=== PATIENT | male | born 1985 | race Caucasian/White ===

== ENCOUNTER 2017-03-26 19:34 | Observation (INO) | payer SELFPAY ==
[2017-03-26 19:35] VITALS: BP 138/83; PULSE 68; RESP 16; TEMP 97.7; O2SAT 100
[2017-03-26 19:47] VITALS: BP 139/87; PULSE 64; RESP 16; O2SAT 100
--- NOTE | 2017-03-26 19:53 | PD ---
HPI Chief Complaint: Cardiac Complaint Time Seen by Provider: 19:42 Travel History International Travel<30 days: No Contact w/Intl Traveler<30days: No Traveled to known affect area: No History of Present Illness HPI Patient is a 32-year-old male presenting to the emergency for evaluation of palpitations. Patient states that he felt as if his heart is racing today. He also reports feeling sweaty and dizzy when this happens. He does report that he vomited once, one hour prior to arrival. 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 He denies any abdominal pain, constipation, fever, chills. He has no other complaints at this time. He denies any use of [id number] supplements or any other illicit drugs. PFSH Past Medical History Arthritis: No Asthma: Yes (resolved) Autoimmune Disease: No Anxiety: Yes Depression: No Heart Rhythm Problems: No Cancer: No Cardiovascular Problems: No High Cholesterol: No Chemotherapy: No Chest Pain: No Congestive Heart Failure: No COPD: No Cerebrovascular Accident: No Diabetes: No Diminished Hearing: No Endocrine: No GERD: No Genitourinary: No Hiatal Hernia: Yes Immune Disorder: No Kidney Stones: No Musculoskeletal: No Neurologic: No Psychiatric: No Reproductive: No Respiratory: No Migraines: Yes Radiation Therapy: No Renal Failure: No Seizures: Yes (first one was 4 years ago) Sickle Cell Disease: No Sleep Apnea: No Thyroid Disease: No Ulcer: No Past Surgical History Arteriovenous Shunt: No Cardiac Surgery: No Ear Surgery: No Endocrine Surgery: No Eye Surgery: No Genitourinary Surgery: No Insulin Pump: No Joint Replacement: No Pacemaker: No Thoracic Surgery: No Social History Alcohol Use: No Tobacco Use: Yes (1PPD) Substance Use: Yes (Opiates) Allergies-Medications (Allergen,Severity, Reaction): Coded Allergies: penicillin G (Verified Allergy, Severe, 03/26/17) Reported Meds & Prescriptions Reported Meds & Active Scripts Active No Active Prescriptions or Reported Medications Review of Systems Except as stated in HPI: all other systems reviewed are Neg Cardiovascular: Positive: Palpitations, Diaphoresis Gastrointestinal: Positive: Nausea, Vomiting Neurologic: Positive: Dizziness Physical Exam Narrative GENERAL: Well-developed, well-nourished, alert male. Resting comfortably in no acute distress. SKIN: Warm and dry. HEAD: Atraumatic. Normocephalic. EYES: Pupils equal and round. No scleral icterus. No injection or drainage. ENT: No nasal bleeding or discharge. Mucous membranes pink and moist. NECK: Trachea midline. No JVD. CARDIOVASCULAR: Regular rate and rhythm. RESPIRATORY: No accessory muscle use. Clear to auscultation. Breath sounds equal bilaterally. GASTROINTESTINAL: Abdomen soft, non-tender, nondistended. Hepatic and splenic margins not palpable. MUSCULOSKELETAL: Extremities without clubbing, cyanosis, or edema. No obvious deformities. NEUROLOGICAL: Awake and alert. No obvious cranial nerve deficits. Motor grossly within normal limits. Five out of 5 muscle strength in the arms and legs. Normal speech. PSYCHIATRIC: Appropriate mood and affect; insight and judgment normal. Data Data Last Documented VS Vital Signs Date Time Temp Pulse Resp B/P (MAP) Pulse Ox O2 Delivery O2 Flow Rate FiO2 03/26/17 20:07 03/26/17 20:06 100 Room Air 03/26/17 19:47 64 16 03/26/17 19:35 97.7 Orders Orders Electrocardiogram (03/26/17 19:48) Ckmb (Isoenzyme) Profile (03/26/17 19:48) Complete Blood Count With Diff (03/26/17 19:48) Comprehensive Metabolic Panel (03/26/17 19:48) Magnesium (Mg) (03/26/17 19:48) Prothrombin Time / Inr (Pt) (03/26/17 19:48) Act Partial Throm Time (Ptt) (03/26/17 19:48) Troponin I (03/26/17 19:48) Chest, Single Ap (03/26/17 19:48) Ecg Monitoring (03/26/17 19:48) Bilateral Bp Monitoring (03/26/17 19:48) Iv Access Insert/Monitor (03/26/17 19:48) Oximetry (03/26/17 19:48) Oxygen Administration (03/26/17 19:48) Sodium Chloride 0.9% Flush (Ns Flush) (03/26/17 20:00) Drug Screen, Random Urine (03/26/17 19:48) Sodium Chlor 0.9% 1000 Ml Inj (Ns 1000 M (03/26/17 20:00) Admit Order (Ed Use Only) (03/26/17 21:27) Labs Laboratory Tests Test 03/26/17 19:55 03/26/17 20:35 White Blood Count 7.2 TH/MM3 Red Blood Count 4.79 MIL/MM3 Hemoglobin 14.2 GM/DL Hematocrit 41.0 % Mean Corpuscular Volume 85.5 FL Mean Corpuscular Hemoglobin 29.6 PG Mean Corpuscular Hemoglobin Concent 34.6 % Red Cell Distribution Width 13.2 % Platelet Count 211 TH/MM3 Mean Platelet Volume 9.0 FL Neutrophils (%) (Auto) 61.7 % Lymphocytes (%) (Auto) 30.1 % Monocytes (%) (Auto) 6.5 % Eosinophils (%) (Auto) 1.2 % Basophils (%) (Auto) 0.5 % Neutrophils # (Auto) 4.4 TH/MM3 Lymphocytes # (Auto) 2.2 TH/MM3 Monocytes # (Auto) 0.5 TH/MM3 Eosinophils # (Auto) 0.1 TH/MM3 Basophils # (Auto) 0.0 TH/MM3 CBC Comment DIFF FINAL Differential Comment Prothrombin Time 10.7 SEC Prothromb Time International Ratio 1.0 RATIO Activated Partial Thromboplast Time 27.8 SEC Blood Urea Nitrogen 12 MG/DL Creatinine 0.91 MG/DL Random Glucose 77 MG/DL Total Protein 7.0 GM/DL Albumin 4.3 GM/DL Calcium Level 9.1 MG/DL Magnesium Level 2.0 MG/DL Alkaline Phosphatase 74 U/L Aspartate Amino Transf (AST/SGOT) 12 U/L Alanine Aminotransferase (ALT/SGPT) 22 U/L Total Bilirubin 0.2 MG/DL Sodium Level 138 MEQ/L Potassium Level 3.8 MEQ/L Chloride Level 104 MEQ/L Carbon Dioxide Level 27.9 MEQ/L Anion Gap 6 MEQ/L Estimat Glomerular Filtration Rate 98 ML/MIN Total Creatine Kinase 82 U/L Troponin I LESS THAN 0.02 NG/ML Urine Opiates Screen NEG Urine Barbiturates Screen NEG Urine Amphetamines Screen NEG Urine Benzodiazepines Screen NEG Urine Cocaine Screen NEG Urine Cannabinoids Screen NEG MDM Medical Decision Making Medical Screen Exam Complete: Yes Emergency Medical Condition: Yes Medical Record Reviewed: Yes Interpretation(s) Vital Signs Date Time Temp Pulse Resp B/P (MAP) Pulse Ox O2 Delivery O2 Flow Rate FiO2 03/26/17 19:47 64 16 139/87 (104) 100 Room Air 03/26/17 19:35 97.7 68 16 138/83 (101) 100 Room Air Differential Diagnosis Intoxication versus drug abuse versus palpitations versus arrhythmia versus metabolic abnormality versus other Narrative Course Patient is a 32-year-old male that presented to emergency department for evaluation of palpitations, diaphoresis, dizziness. Patient's vital signs are stable. He presented with the same symptoms last year and was diagnosed with loperamide toxicity. During that admission he developed torsades. Labs and imaging ordered and pending. Initial EKG shows QTC C prolongation of QRS prolongation, this was reviewed by my attending physician. Labs and imaging ordered and pending. Chest x-ray shows no acute disease CBC, chemistry, magnesium, cardiac enzymes reviewed and are unremarkable with no acute abnormalities identified. Urine drug screen is negative. Discussed with my attending physician, please see her documentation. Patient will be admitted for observation due to EKG abnormality. Discussed with Dr. Syed who accepted admission. Admit orders placed. Diagnosis Primary Impression: Prolonged QT interval Additional Impression: Drug toxicity Admitting Information Admitting Physician Requests: Observation Scripts No Active Prescriptions or Reported Meds Condition: Stable Kirstie Cary [facility] Mar 26, 2017 19:53
[2017-03-26] MEDS ORDERED: SODIUM CHLORIDE 0.9% FLUSH 10 ML FLUSH IVF PRN (20:00)
[2017-03-26] MEDS ORDERED: SODIUM CHLOR 0.9% 1000 ML INJ 1,000 ML IV ONE (20:00)
--- NOTE | 2017-03-26 20:17 | RADRPT ---
EXAM DATE/TIME: 03/26/2017 20:06 [place] COMPARISON: No previous studies available for comparison. INDICATIONS : Chest pain. MEDICAL HISTORY : Seizures. SURGICAL HISTORY : None. ENCOUNTER: Initial ACUITY: 1 day PAIN SCORE: 10/10 LOCATION: Right chest FINDINGS: A single view of the chest demonstrates the lungs to be symmetrically aerated without evidence of mas s, infiltrate or effusion. The cardiomediastinal contours are unremarkable. Osseous structures are intact. CONCLUSION: No acute disease. Hung Bernard MD on March 26, 2017 at 20:15 Board Certified Radiologist. This report was verified electronically.
[2017-03-26 20:18] LABS: AUTOMATED NEUTROPHIL # 4.4 TH/MM3 (1.8-7.7); BASOPHIL % 0.5 % (0.0-2.0); EOSINOPHIL # 0.1 TH/MM3 (0-0.4); EOSINOPHIL % 1.2 % (0.0-4.0); HEMO FLAGS DIFF FINAL; LYMPH % 30.1 % (9.0-44.0); LYMPHOCYTE # 2.2 TH/MM3 (1.0-4.8); MEAN CELL VOLUME 85.5 FL (80.0-100.0); MEAN CORPUSCULAR HEMOGLOBIN 29.6 PG (27.0-34.0); MEAN CORPUSCULAR HGB CONC 34.6 % (32.0-36.0); MONO % 6.5 % (0.0-8.0); NEUT % 61.7 % (16.0-70.0); PLATELET COUNT 211 TH/MM3 (150-450); RED BLOOD COUNT 4.79 MIL/MM3 (4.50-5.90); RED CELL DISTRIBUTION WIDTH 13.2 % (11.6-17.2); WHITE BLOOD COUNT 7.2 TH/MM3 (4.0-11.0)
--- NOTE | 2017-03-26 20:27 | PD ---
Data Data Last Documented VS Vital Signs Date Time Temp Pulse Resp B/P (MAP) Pulse Ox O2 Delivery O2 Flow Rate FiO2 03/26/17 20:07 03/26/17 20:06 100 Room Air 03/26/17 19:47 64 16 03/26/17 19:35 97.7 Orders Orders Electrocardiogram (03/26/17 19:48) Ckmb (Isoenzyme) Profile (03/26/17 19:48) Complete Blood Count With Diff (03/26/17 19:48) Comprehensive Metabolic Panel (03/26/17 19:48) Magnesium (Mg) (03/26/17 19:48) Prothrombin Time / Inr (Pt) (03/26/17 19:48) Act Partial Throm Time (Ptt) (03/26/17 19:48) Troponin I (03/26/17 19:48) Chest, Single Ap (03/26/17 19:48) Ecg Monitoring (03/26/17 19:48) Bilateral Bp Monitoring (03/26/17 19:48) Iv Access Insert/Monitor (03/26/17 19:48) Oximetry (03/26/17 19:48) Oxygen Administration (03/26/17 19:48) Sodium Chloride 0.9% Flush (Ns Flush) (03/26/17 20:00) Drug Screen, Random Urine (03/26/17 19:48) Sodium Chlor 0.9% 1000 Ml Inj (Ns 1000 M (03/26/17 20:00) Admit Order (Ed Use Only) (03/26/17 21:27) Labs Laboratory Tests Test 03/26/17 19:55 03/26/17 20:35 White Blood Count 7.2 TH/MM3 Red Blood Count 4.79 MIL/MM3 Hemoglobin 14.2 GM/DL Hematocrit 41.0 % Mean Corpuscular Volume 85.5 FL Mean Corpuscular Hemoglobin 29.6 PG Mean Corpuscular Hemoglobin Concent 34.6 % Red Cell Distribution Width 13.2 % Platelet Count 211 TH/MM3 Mean Platelet Volume 9.0 FL Neutrophils (%) (Auto) 61.7 % Lymphocytes (%) (Auto) 30.1 % Monocytes (%) (Auto) 6.5 % Eosinophils (%) (Auto) 1.2 % Basophils (%) (Auto) 0.5 % Neutrophils # (Auto) 4.4 TH/MM3 Lymphocytes # (Auto) 2.2 TH/MM3 Monocytes # (Auto) 0.5 TH/MM3 Eosinophils # (Auto) 0.1 TH/MM3 Basophils # (Auto) 0.0 TH/MM3 CBC Comment DIFF FINAL Differential Comment Prothrombin Time 10.7 SEC Prothromb Time International Ratio 1.0 RATIO Activated Partial Thromboplast Time 27.8 SEC Blood Urea Nitrogen 12 MG/DL Creatinine 0.91 MG/DL Random Glucose 77 MG/DL Total Protein 7.0 GM/DL Albumin 4.3 GM/DL Calcium Level 9.1 MG/DL Magnesium Level 2.0 MG/DL Alkaline Phosphatase 74 U/L Aspartate Amino Transf (AST/SGOT) 12 U/L Alanine Aminotransferase (ALT/SGPT) 22 U/L Total Bilirubin 0.2 MG/DL Sodium Level 138 MEQ/L Potassium Level 3.8 MEQ/L Chloride Level 104 MEQ/L Carbon Dioxide Level 27.9 MEQ/L Anion Gap 6 MEQ/L Estimat Glomerular Filtration Rate 98 ML/MIN Total Creatine Kinase 82 U/L Troponin I LESS THAN 0.02 NG/ML Urine Opiates Screen NEG Urine Barbiturates Screen NEG Urine Amphetamines Screen NEG Urine Benzodiazepines Screen NEG Urine Cocaine Screen NEG Urine Cannabinoids Screen NEG MDM Medical Record Reviewed: Yes Supervised Visit with NIKOS: Yes Interpretation(s) Last Impressions Chest X-Ray 03/26/171947 Signed Impressions: Service Date/Time: Sunday, March 26, 2017 20:06 - CONCLUSION: No acute disease. Hung Bernard MD Narrative Course I, Dr. Richard, have reviewed the advance practice practitioner's documentation and am in agreement, met with the patient face to face, made the diagnosis, and the medical decision making was done by me. The patient was initially evaluated by Kirstie. Please see her complete history and physical. *My assessment and Findings: The patient is a 32-year-old male who presents to [facility] emergency Department with a history of palpitations. The patient reports a history of daily Immodium use of one tablet per day. The patient reports that he has recently been experiencing palpitations. The patient according to the record did have a history of arrhythmia. The patient was admitted to the hospital on April 20, 2016 initially thought to be related to syncope versus seizure activity. The patient while being observed telemetry had an episode of [place]. The patient had a cardiac consultation placed and the patient was transferred to the intensive care unit for close monitoring. The patient was seen by Dr. Negrito Richard regarding this episode. The patient was initially noted to have an intraventricular conduction delay, right axis deviation and QTC prolongation. All of these were thought to be related to loperamide toxicity. The patient was maintained on the monitor and watched for improvement of his cardiac conduction abnormalities. Shortly after his episode torsades the patient was given 2 g of magnesium IV and 50 mEq of potassium chloride by mouth. It appears according to the record that the patient had no further episodes of cardiac arrhythmias. At discharge, the patient's ECG on 04/23/2016 continued to show a prolonged QT interval at 520 ms, QRS duration was 108 ms. The patient had an ECG done on arrival to this facility at this time that shows a sinus arrhythmia with a heart rate of 62, marked right fist deviation, right bundle branch block, QRS duration is 152 ms, QTC [address]-T wave abnormalities, T waves are inverted in V1 , V2, no acute ST segment elevation. The patient was placed on a monitoring engineer with telemetry and blood pressure monitoring. Laboratory studies and a chest x-ray were ordered. During the course of the patients emergency department visit, the patients history, examination, and differential diagnosis were reviewed with the patient. The patient had IV access obtained and blood work sent for analysis. The patient was initially provided normal saline a 1 L IV fluid bolus. The patients laboratory studies were reviewed and remarkable for a CBC that is within normal limits, CMP is remarkable for an AST of 12, CPK 82, troponin I less than 0.02, PT 10.7, PTT 27.8, magnesium level is 2, urine drug screen is negative Radiology studies were reviewed and remarkable for a chest x-ray that is within normal limits. Given the patient's history of recurrent palpitations and torsades with abnormal EKG, the patient will be admitted to the hospital for continued evaluation. The patients results were discussed with the patient, including the plan of care. I explained that further testing and/ or monitoring is indicated based on the patients history, examination, and/ or laboratory findings. Therefore, I recommended admission for additional evaluation. The patient expressed understanding and was agreeable with this plan. The patient was admitted to the hospital in guarded condition and sent to a bed under the care of the [facility] hospitalist service. Diagnosis Primary Impression: Prolonged QT interval Additional Impressions: EKG abnormality Heart palpitations Admitting Information Admitting Physician Requests: Observation Scripts No Active Prescriptions or Reported Meds Allyssa Richard MD Mar 26, 2017 20:27
[2017-03-26 20:37] LABS: ANION GAP 6 MEQ/L (5-15); AST (GOT) 12 U/L (15-37); BICARBONATE 27.9 MEQ/L (21.0-32.0); BLOOD UREA NITROGEN 12 MG/DL (7-18); CHLORIDE 104 MEQ/L (98-107); GLOMERULAR FILTRATION RATE 98 ML/MIN (>89); POTASSIUM 3.8 MEQ/L (3.5-5.1); SODIUM (NA) 138 MEQ/L (136-145)
[2017-03-26 20:39] LABS: ALT (GPT) 22 U/L (12-78)
[2017-03-26 20:42] LABS: ALKALINE PHOSPHATASE 74 U/L (45-117); TOTAL BILIRUBIN ADULT 0.2 MG/DL (0.2-1.0)
[2017-03-26 20:53] LABS: CREATINE KINASE 82 U/L (39-308)
[2017-03-26 20:59] LABS: APTT (PATIENT) 27.8 SEC (24.3-30.1); PROTHROMBIN TIME - PATIENT 10.7 SEC (9.8-11.6)
[2017-03-26] MEDS ORDERED: SODIUM CHLORIDE 0.9% FLUSH 10 ML FLUSH IV FLUSH PRN (21:30)
[2017-03-26] MEDS ORDERED: NALOXONE HCL 0.4 MG/ML AMP IV PRN (21:30)
--- NOTE | 2017-03-26 21:56 | HHI.HP ---
[facility] Service [facility] ([place], [place])ists Primary Care Physician No Primary Care Physician Admission Diagnosis LOPERAMIDE TOXICITY Diagnoses: (1) Drug toxicity (2) Prolonged QT interval Chief Complaint: Palpitations Travel History International Travel<30 Days: No Contact w/Intl Traveler <30 Da: No Traveled to Known Affected Are: No History of Present Illness Written by Bebe Hancock, acting as scribe for Dr. Syed on 03/26/17 at 21:54. The patient is seen in ED He states that he took 70 loperamide tablets Following this, he felt palpitations, denies chest pain He reports dizziness, nausea, and diaphoresis followed by syncopal episodes His called EMS Denies suicidal intent States he was trying to treat his opiate addiction Denies vomiting, diarrhea, dysuria, black or red stools He reports that he felt hot last night and chest turned red but has no recorded fevers Review of Systems Except as stated in HPI: all other systems reviewed are Neg Past Family Social History Past Medical History Opioid addiction History of Torsades . Past Surgical History Knee surgery - "cut tendon" . Reported Medications Loperamide Allergies: Coded Allergies: penicillin G (Verified Allergy, Severe, 03/26/17) Active Ordered Medications Current Medications Sodium Chloride (NS Flush) 2 ml UNSCH PRN IVF FLUSH AFTER USING IV ACCESS; Start 03/26/17 at 20:00; Stop 03/26/17 at 21:35; Status DC Sodium Chloride 1,000 ml @ 999 mls/hr BOLUS ONCE IV Last administered on 03/26t 20:08; Start 03/26/17 at 20:00; Stop 03/26/17 at 21:00; Status DC Sodium Chloride (NS Flush) 2 ml UNSCH PRN IV FLUSH FLUSH AFTER USING IV ACCESS ; Start 03/26/17 at 21:30 Sodium Chloride (NS Flush) 2 ml BID IV FLUSH ; Start 03/27/17 at 09:00 Naloxone HCl (Narcan Inj) 0.4 mg UNSCH PRN IV SEE LABEL COMMENTS; Start at 21:30 Family History Addiction in the family Mother with diabetes mellitus . Social History Tobacco: 1 1/2 PPD Alcohol: denies Illicit drugs: denies IVD - abuses opiate pills Physical Exam Vital Signs Vital Signs Date Time Temp Pulse Resp B/P (MAP) Pulse Ox O2 Delivery O2 Flow Rate FiO2 03/26/17 20:07 03/26/17 20:06 100 Room Air 03/26/17 19:47 64 16 139/87 (104) 100 Room Air 03/26/17 19:35 97.7 68 16 138/83 (101) 100 Room Air Physical Exam GENERAL: This is a male patient, in no apparent distress. SKIN: No rashes. Cool and dry. HEAD: Atraumatic. Normocephalic. EYES: No scleral icterus. No injection or drainage. ENT: Nose without bleeding, purulent drainage. Airway patent. NECK: Trachea midline. No JVD. CARDIOVASCULAR: Regular rate and rhythm without murmurs, gallops, or rubs. RESPIRATORY: Clear to auscultation. Breath sounds equal bilaterally. No wheezes , rales, or rhonchi. GASTROINTESTINAL: Abdomen soft, non-tender, nondistended. No guarding. MUSCULOSKELETAL: Extremities without clubbing, cyanosis, or edema. No calf tenderness. NEUROLOGICAL: Awake and alert. Motor and sensory grossly within normal limits. Normal speech. . Laboratory Laboratory Tests Test 03/26/17 19:55 03/26/17 20:35 White Blood Count 7.2 Red Blood Count 4.79 Hemoglobin 14.2 Hematocrit 41.0 Mean Corpuscular Volume 85.5 Mean Corpuscular Hemoglobin 29.6 Mean Corpuscular Hemoglobin Concent 34.6 Red Cell Distribution Width 13.2 Platelet Count 211 Mean Platelet Volume 9.0 Neutrophils (%) (Auto) 61.7 Lymphocytes (%) (Auto) 30.1 Monocytes (%) (Auto) 6.5 Eosinophils (%) (Auto) 1.2 Basophils (%) (Auto) 0.5 Neutrophils # (Auto) 4.4 Lymphocytes # (Auto) 2.2 Monocytes # (Auto) 0.5 Eosinophils # (Auto) 0.1 Basophils # (Auto) 0.0 CBC Comment DIFF FINAL Differential Comment Prothrombin Time 10.7 Prothromb Time International Ratio 1.0 Activated Partial Thromboplast Time 27.8 Blood Urea Nitrogen 12 Creatinine 0.91 Random Glucose 77 Total Protein 7.0 Albumin 4.3 Calcium Level 9.1 Magnesium Level 2.0 Alkaline Phosphatase 74 Aspartate Amino Transf (AST/SGOT) 12 Alanine Aminotransferase (ALT/SGPT) 22 Total Bilirubin 0.2 Sodium Level 138 Potassium Level 3.8 Chloride Level 104 Carbon Dioxide Level 27.9 Anion Gap 6 Estimat Glomerular Filtration Rate 98 Total Creatine Kinase 82 Troponin I LESS THAN 0.02 Urine Opiates Screen NEG Urine Barbiturates Screen NEG Urine Amphetamines Screen NEG Urine Benzodiazepines Screen NEG Urine Cocaine Screen NEG Urine Cannabinoids Screen NEG Result Diagram: 03/26/17195403/26/171954 Imaging Last Impressions Chest X-Ray 03/26/171947 Signed Impressions: Service Date/Time: Sunday, March 26, 2017 20:06 - CONCLUSION: No acute disease. Hung Bernard MD . Ana VTE Risk Assessment Ana VTE Risk Assessment: No/Low Risk (score <= 1) Andrewrini Risk Assessment Model Point Value = 1 Point Value = 2 Point Value = 3 Point Value = 5 Age 41-60 Minor surgery BMI > 25 kg/m2 Swollen legs Varicose veins or History of unexplained or recurrent spontaneous Oral contraceptives or hormone replacement Sepsis (< 1 month) Serious lung disease, including pneumonia (< 1 month) Abnormal pulmonary function Acute myocardial infarction Congestive heart failure (< 1 month) History of inflammatory bowel disease Medical patient at bed rest Age 61-74 Arthroscopic surgery Major open surgery (> 45 min) Laparoscopic surgery (> 45 min) Malignancy Confined to bed (> 72 hours) Immobilizing plaster cast Central venous access Age >= 75 History of VTE Family history of VTE Factor V Leiden Prothrombin [id number] Lupus anticoagulant Anticardiolipin antibodies Elevated serum homocysteine Heparin-induced thrombocytopenia Other congenital or acquired thrombophilia Stroke (< 1 month) Elective arthroplasty Hip, pelvis, or leg fracture Acute spinal cord injury (< 1 month) Prophylaxis Regimen Total Risk Factor Score Risk Level Prophylaxis Regimen 0-1 Low Early ambulation 2 Moderate Order ONE of the following: *Sequential Compression Device (SCD) *Heparin 5000 units SQ BID 3-4 Higher Order ONE of the following medications: *Heparin 5000 units SQ TID *Enoxaparin/Lovenox 40 mg SQ daily (WT < 150 kg, CrCl > 30 mL/min) *Enoxaparin/Lovenox 30 mg SQ daily (WT < 150 kg, CrCl > 10-29 mL/min) *Enoxaparin/Lovenox 30 mg SQ BID (WT < 150 kg, CrCl > 30 mL/min) AND/OR *Sequential Compression Device (SCD) 5 or more Highest Order ONE of the following medications: *Heparin 5000 units SQ TID (Preferred with Epidurals) *Enoxaparin/Lovenox 40 mg SQ daily (WT < 150 kg, CrCl > 30 mL/min) *Enoxaparin/Lovenox 30 mg SQ daily (WT < 150 kg, CrCl > 10-29 mL/min) *Enoxaparin/Lovenox 30 mg SQ BID (WT < 150 kg, CrCl > 30 mL/min) AND *Sequential Compression Device (SCD) Assessment and Plan Problem List: (1) Drug toxicity ICD Code: R89.2 - Abnormal level of other drugs, medicaments and biological substances in specimens from other organs,systems and tissues Status: Acute (2) Prolonged QT interval ICD Code: R94.31 - Abnormal electrocardiogram [ECG] [EKG] Status: Acute Assessment and Plan 32 y/o male with opiate dependence who presented with syncope after chronically abusing loperamide to cure his opiate addiction: Cardiogenic Syncope episode Loperamide toxicity - takes about 70 loperamide per day QT prolongation with history of torsades - extensively counselled regarding loperamide and dangers - discussed opioid avoidance and loperamide avoidance - risks including . Pt is explained that at any point he can go into cardiac arythmias and have sudden cardiac . And that observation in the hospital tonight is not a cure or a fix for this problem/ danger but that there is a high chance of this cardiogenic syncope and torsades happening again. - discussed getting into a treatment program or [place] [facility] - continuous cardiac telemetry to monitor for arrhythmias - serial EKGs and cardiac enzymes to r/o ACS as cause of syncope though this is more likely related to qt prolongation DVT prophylaxis - Early ambulation This note was transcribed by [email or web address] [Bebe Hancock]. I, Dr. Peng Syed personally performed the history, physical exam, and medical decision making; and confirmed the accuracy of the information in the transcribed note. Authenticated by Dr. Peng Syed on 03/26/17 at 21:54. Discussed Condition With ER physician and patient . Bebe Hancock Mar 26, 2017 21:56 Peng Syed MD Mar 27, 2017 03:17
[2017-03-26 22:00] VITALS: BP 131/63; PULSE 60; RESP 18; O2SAT 100
[2017-03-27] VITALS (10 sets, daily range): BP systolic 108–132; BP diastolic 57–84; PULSE 59–70; RESP 16–18; TEMP 97.9–98.7; O2SAT 96–97
[2017-03-27 03:44] LABS: CREATINE KINASE 75 U/L (39-308)
[2017-03-27 05:07] LABS: AUTOMATED NEUTROPHIL # 9.1 TH/MM3 (1.8-7.7); BASOPHIL % 0.1 % (0.0-2.0); HEMATOCRIT 43.2 % (39.0-51.0); HEMO FLAGS DIFF FINAL; LYMPH % 10.6 % (9.0-44.0); LYMPHOCYTE # 1.1 TH/MM3 (1.0-4.8); MEAN CELL VOLUME 86.4 FL (80.0-100.0); MEAN CORPUSCULAR HEMOGLOBIN 29.8 PG (27.0-34.0); MEAN CORPUSCULAR HGB CONC 34.5 % (32.0-36.0); MONO % 3.1 % (0.0-8.0); NEUT % 86.2 % (16.0-70.0); PLATELET COUNT 216 TH/MM3 (150-450); RED BLOOD COUNT 4.99 MIL/MM3 (4.50-5.90); RED CELL DISTRIBUTION WIDTH 13.5 % (11.6-17.2); WHITE BLOOD COUNT 10.6 TH/MM3 (4.0-11.0)
[2017-03-27 05:24] LABS: ANION GAP 6 MEQ/L (5-15); AST (GOT) 13 U/L (15-37); BICARBONATE 25.8 MEQ/L (21.0-32.0); BLOOD UREA NITROGEN 9 MG/DL (7-18); CHLORIDE 104 MEQ/L (98-107); GLOMERULAR FILTRATION RATE 119 ML/MIN (>89); POTASSIUM 4.1 MEQ/L (3.5-5.1); SODIUM (NA) 136 MEQ/L (136-145)
[2017-03-27 05:25] LABS: ALT (GPT) 23 U/L (12-78)
[2017-03-27 05:27] LABS: ALKALINE PHOSPHATASE 78 U/L (45-117); TOTAL BILIRUBIN ADULT 0.8 MG/DL (0.2-1.0)
[2017-03-27] MEDS ORDERED: SODIUM CHLORIDE 0.9% FLUSH 10 ML FLUSH IV FLUSH SCH (09:00)
--- NOTE | 2017-03-27 11:53 | HHI.PR ---
Subjective Remarks Pt states that his legs are bothering him, like "restless legs"/ had nausea and vomited once this morning, hasn't tried his breakfast yet. Hopes to be discharged soon. Denied to me any CP/SOB/palpitations/lightheadedness States that he last took loperamide the night before yesterday and admits that he has been taking that amount of loperamide 70 tabs daily for the past year. states that he gets an "opiate high" from it. He tried looking for help but "fell down the wagon". He denies any suicidal ideation. Wants something for his legs. Objective Vitals Vital Signs Date Time Temp Pulse Resp B/P (MAP) Pulse Ox O2 Delivery O2 Flow Rate FiO2 03/27/17 11:25 98.7 60 16 108/57 (74) 97 03/27/17 07:59 62 03/27/17 07:25 98.6 60 16 124/68 (86) 97 03/27/17 04:13 97.9 62 17 132/62 (85) 96 03/27/17 04:00 60 03/27/17 00:46 60 03/27/17 00:33 98.4 61 18 121/80 (94) 97 03/26/17 22:30 03/26/17 22:00 60 18 131/63 (85) 100 Room Air 03/26/17 20:07 03/26/17 20:06 100 Room Air 03/26/17 19:47 64 16 139/87 (104) 100 Room Air 03/26/17 19:35 97.7 68 16 138/83 (101) 100 Room Air I/O 03/26/17 03/26/17 03/26/17 03/27/17 03/27/17 03/27/17 07:00 15:00 23:00 07:00 15:00 23:00 Intake Total 1000 ml 230 ml Balance 1000 ml 230 ml Intake Oral 230 ml IV Total 1000 ml # Voids 1 1 Result Diagram: 03/27/17 0435 03/27/17434 Imaging Last Impressions Chest X-Ray 03/26/171947 Signed Impressions: Service Date/Time: Sunday, March 26, 2017 20:06 - CONCLUSION: No acute disease. Hung Bernard MD Objective Remarks GENERAL: laying down, covering his face SKIN: No rashes. Cool and dry. HEAD: Atraumatic. Normocephalic. EYES: EOMI ENT: Nose without drainage. Airway patent. NECK: Trachea midline. CARDIOVASCULAR: Regular rate and rhythm without murmurs RESPIRATORY: Clear to auscultation. Breath sounds equal bilaterally. No wheezes GASTROINTESTINAL: Abdomen soft, some discomfort w palpation but no guarding or rebound, nondistended. MUSCULOSKELETAL: Extremities without edema. No calf tenderness. NEUROLOGICAL: Awake and alert. Motor and sensory grossly within normal limits. Normal speech A/P Problem List: (1) Drug toxicity ICD Code: R89.2 - Abnormal level of other drugs, medicaments and biological substances in specimens from other organs,systems and tissues Status: Acute (2) Prolonged QT interval ICD Code: R94.31 - Abnormal electrocardiogram [ECG] [EKG] Status: Acute Assessment and Plan 32 y/o male with opiate dependence who presented with syncope after chronically abusing loperamide to cure his opiate addiction: Cardiogenic Syncope episode Loperamide toxicity - takes about 70 loperamide per day for the past year. QT prolongation with history of torsades - Pt has already been extensively counselled regarding loperamide and dangers - Prior hospitalist has already discussed opioid avoidance and loperamide avoidance - risks including . Pt is explained that at any point he can go into cardiac arythmias and have sudden cardiac . And that observation in the hospital tonight is not a cure or a fix for this problem/ danger but that there is a high chance of this cardiogenic syncope and torsades happening again. will check EKG today and if QTc improved or close to normal, will discharge pt. - discussed getting into a treatment program or [facility]. Apparently pt tried to go but "fell off wagon". - continuous cardiac telemetry to monitor for arrhythmias. I did review TELE and there was "background" noise but nothing reported on TELE. - troponins x 2 neg. Repeat EKG this morning. Restless legs: encourage ambulation, may need to take iron tabs and see if this help. Pt to f/u w PCP Nausea/vomiting x1 this morning. give zofran prn. encourage po intake. DVT prophylaxis - Early ambulation Discharge Planning anticipate d/c later today or tomorrow morning if pt tolerating po and if EKG shows improvement in QTc (was 527) yesterday. (normal <430 for men). Currently pt denies any lightheadedness or dizziness or any CP. Debbie Winchester MD Mar 27, 2017 11:53
[2017-03-27] MEDS ORDERED: ONDANSETRON HCL 4 MG/2 ML VIAL IV PUSH ONE (13:00)
[2017-03-27 13:18] LABS: CREATINE KINASE 58 U/L (39-308)
[2017-03-27] MEDS ORDERED: FERROUS SULFATE 325 MG (65 MG ELEMENTAL IRON) TAB PO ONE (14:00)
[2017-03-27] MEDS ORDERED: ACETAMINOPHEN 325 MG TAB PO ONE (14:00)
--- NOTE | 2017-03-27 14:23 | EKG ---
Date Performed: 03/26/2017 Time Performed: 20:02:26 PTAGE: 32 years EKG: Sinus rhythm WITH FIRST DEGREE AV BLOCK MARKED RIGHT AXIS DEVIATION RIGHT BUNDLE BRANCH BLOCK ABNORMAL ECG PREVIOUS TRACING : 04/23/2016 05.41 Compared to the prior EKG, nonspecific changes anteriorly h ave improved. DOCTOR: Christiano Alfred Interpretating Date/Time 03/27/2017 14:21:53
[2017-03-27] MEDS ORDERED: BACLOFEN 10 MG TAB PO ONE (14:30)
[2017-03-27] MEDS ORDERED: ONDANSETRON HCL 4 MG/2 ML VIAL IV PUSH PRN (19:00)
[2017-03-27] MEDS ORDERED: BACLOFEN 10 MG TAB PO SCH (22:00)
[2017-03-28] MEDS ORDERED: FERROUS SULFATE 325 MG (65 MG ELEMENTAL IRON) TAB PO SCH (09:00)
--- NOTE | 2017-03-28 13:32 | EKG ---
Date Performed: 03/27/2017 Time Performed: 08:16:33 PTAGE: 32 years EKG: Sinus rhythm WITH FIRST DEGREE AV BLOCK MARKED RIGHT AXIS DEVIATION INTRAVENTRICULAR CONDUCTION DELAY Probable le ft ventricular hypertrophy with anterolateral ST-T wave changes ABNORMAL ECG PREVIOUS TRACING : 03/26/2017 20.02 Since the prior tracing, there has been an increase in the lateral ST-T wave changes, but no other significant serial change. DOCTOR: Liberty Pearson Interpretating Date/Time 03/28/2017 13:31:02
--- NOTE | 2017-03-28 13:34 | EKG ---
Date Performed: 03/27/2017 Time Performed: 12:40:46 PTAGE: 32 years EKG: SINUS BRADYCARDIA WITH FIRST DEGREE AV BLOCK MARKED RIGHT AXIS DEVIATION INTRAVENTRICULAR C ONDUCTION DELAY Prolongation of the QT interval for the heart rate, consider electrolyte imbalance, d rug effect, or myocardial disease ABNORMAL ECG PREVIOUS TRACING : 03/27/2017 08.16 Since the prior tracing, there has been variation in the an terolateral ST-T wave changes, and the QT interval is now prolonged. Clinical correlation will be imp ortant. DOCTOR: Liberty Pearson Interpretating Date/Time 03/28/2017 13:33:32
== END 2017-03-27 19:53 | disposition home or self-care (01) ==
LOC: NEPC 19:34 → NEDA 21:29 → NEPFCDU 22:41
PROVIDERS: ADMIT Hospitalist; ATTEND Hospitalist
DX: R55 Syncope and collapse (principal); T47.6X5A Adverse effect of antidiarrheal drugs, initial encounter; R94.31 Abnormal electrocardiogram [ECG] [EKG]; F11.20 Opioid dependence, uncomplicated; R11.2 Nausea with vomiting, unspecified; K44.9 Diaphragmatic hernia without obstruction or gangrene; G43.909 Migraine, unspecified, not intractable, without status migrainosus; F17.200 Nicotine dependence, unspecified, uncomplicated
CPT/HCPCS: 71010; 80053; 80307; 82550; 83735; 84484; 85025; 85610; 85730; 93005; 96361; 96374; 99285; G0378; J2405; J7030